=== PATIENT | male | born 1980 | race Caucasian/White ===

== ENCOUNTER → 2017-09-20 09:04 | Outpatient (CLI) | payer OTHER, SELFPAY | DX: E29.1 Testicular hypofunction (principal) | CPT/HCPCS: 36415; 84403 ==

== ENCOUNTER → 2018-12-11 06:18 | Outpatient (CLI) | payer OTHER, SELFPAY ==
[2018-12-14 13:08] LABS: Testosterone, Free 8.18 ng/dL (5.00-21.00)
[2018-12-14 13:41] LABS: Testosterone, % Free 3.26 % (1.50-4.20); Testosterone, Total 251 ng/dL (264-916)
== END ==
DX: E29.1 Testicular hypofunction (principal)
CPT/HCPCS: 36415; 84402; 84403